=== PATIENT | male | born 1990 | race American Indian/Alaskan Native ===

== ENCOUNTER 2016-12-03 06:45 | Inpatient (IN) | payer OTHER ==
[2016-12-03 07:20] LABS: Basophils % (Auto) 0.9 % (0.0-1.8); Eosinophils % (Auto) 3.9 % (0.0-4.3); Hematocrit 43.8 % (35.5-45.6); Hemoglobin 14.7 gm/dl (11.8-15.2); Mean Corpuscular HGB Conc 34 % (32-34); Mean Corpuscular Hemoglobin 30 pg (28-32); Mean Corpuscular Volume 89 fl (84-94); Platelet Count 228 K/mm3 (140-440); Red Blood Count 4.91 M/mm3 (3.65-5.03); Red Cell Distribution Width 12.3 % (13.2-15.2); White Blood Count 10.3 K/mm3 (4.5-11.0)
[2016-12-03] MEDS ORDERED: TYLENOL PO ONE (07:40)
--- NOTE | 2016-12-03 07:40 | Emergency Department Report ---
HPI - General Chief Complaint: Altered Mental Status Time Seen by Provider: 12/03/16 07:15 - HPI HPI: This is a 25-year-old -[place] male presents to the emergency department by EMS after he was found unresponsive and vomiting. The patient is currently awake and alert and says that he was driving his girlfriend to work around 5 AM, and when he was returning back home just prior to presentation he began feeling hot and sweaty and nauseated and pulled over at a gas station. The next thing he remembers he is in route to the emergency department with EMS. Patient was given 2 mg of Narcan which did appear to help. Patient says he began having seizures last summer and was diagnosed as epileptic on September 13. He takes Depakote for his seizures. Recently the dosage was decreased since he had not been having any seizures recently. Unknown if this was a seizure as there was no eyewitness. Currently patient complains only of some headache. He admits to smoking marijuana last night but otherwise he denies any other illicit drug use or excessive alcohol use. He denies any other past medical history. His primary care doctor is a Dr. Shah. No recent travel or sick contacts at home. ED Past Medical Hx - Past Medical History Hx Seizures: Yes - Surgical History Past Surgical History?: No - Social History Smoking Status: Never Smoker Substance Use Type: Alcohol, Marijuana - Medications Home Medications: Home Medications Medication Instructions Recorded Confirmed Last Taken Type Divalproex [DepaKOTE ] 250 mg PO BID 12/03/16 12/03/16 Unknown History ED Review of Systems ROS: Stated complaint: AMS Other details as noted in HPI Comment: All other systems reviewed and negative Constitutional: denies: chills, fever Eyes: denies: eye pain, eye discharge, vision change ENT: denies: ear pain, throat pain Respiratory: denies: cough, shortness of breath, wheezing Cardiovascular: denies: chest pain, palpitations Gastrointestinal: denies: abdominal pain, nausea, diarrhea Genitourinary: denies: urgency, dysuria Musculoskeletal: denies: back pain, joint swelling, arthralgia Skin: denies: rash, lesions Neurological: headache. denies: numbness, paresthesias Physical Exam - Physical Exam Vital Signs: Vital Signs 12/03/16 06:50 Temperature 97.6 F Pulse Rate 96 H Respiratory 18 Rate Blood Pressure 147/85 O2 Sat by Pulse 98 Oximetry Physical Exam: GENERAL: The patient is well-developed well-nourished. HEENT: Normocephalic. Atraumatic. Extraocular motions are intact. Patient has moist mucous membranes. Pupils equal reactive to light bilaterally. NECK: Supple. Trachea is midline. CHEST/LUNGS: Clear to auscultation. There is no respiratory distress noted. HEART/CARDIOVASCULAR: Regular. There is no tachycardia. There is no gallop rub or murmur. ABDOMEN: Abdomen is soft, nontender. Patient has normal bowel sounds. There is no abdominal distention. SKIN: There is no rash. There is no edema. There is no diaphoresis. NEURO: The patient is awake, alert, and oriented. The patient is cooperative. The patient has no focal neurologic deficits. The patient has normal speech. Cranial nerves II through XII grossly intact. MUSCULOSKELETAL: There is no tenderness or deformity. There is no limitation range of motion. There is no evidence of acute injury. Muscle strength 5 out of 5 upper and lower extremity bilaterally. ED Course Vital Signs 12/03/16 06:50 Temperature 97.6 F Pulse Rate 96 H Respiratory 18 Rate Blood Pressure 147/85 O2 Sat by Pulse 98 Oximetry - Reevaluation(s) Reevaluation #1: The patient has been reevaluated multiple times during his ED course. The patient had a witnessed seizure about 11:30 AM and since that time the patient has been closely monitored and receiving multiple medications. The patient has received a total of 6 mg of Ativan and received a dose of ketamine 15 mg which is just about at 0.2 mg/kg. The patient is just now started to relax from postictal confusion and combativeness. Since the patient has had a second seizure and such a prolonged postictal period, the patient will have a CT scan of the head done to rule out any acute intercranial process. If there is no bleed, edema or reason for transfer, the patient will be admitted to the hospital for IV fluid resuscitation and further evaluation. 12/03/16 15:04 ED Medical Decision Making - Lab Data Result diagrams: 12/03/16 07:04 12/03/16 07:04 - EKG Data -: EKG Interpreted by Me EKG shows normal: sinus rhythm (with sinus arrhythmia), axis, intervals, QRS complexes, ST-T waves Rate: normal - EKG Data When compared to previous EKG there are: previous EKG unavailable Interpretation: normal EKG - Radiology Data Radiology results: report reviewed, image reviewed interpreted by me: X-ray of the right shoulder does not show any fracture or dislocation. CT of the head does not show any acute process including no hemorrhage, mass, shift, diffuse edema or skull fracture. - Medical Decision Making 25-year-old male presents to the emergency department after there was a unresponsive episode while driving home earlier this morning. Patient seemed to respond to Narcan however he denies any opiate use and his urine drug screen eventually was negative. Patient has a history of epilepsy and there was some concern that could've been an atypical seizure and that he broke his postictal period just as he got Narcan coincidentally. Patient was seen in the emergency department and had labs and physical exam. At this time he was awake and alert , and oriented. Patient's labs did not show any signs of infection, electrolyte abnormalities, renal insufficiency, glucose abnormalities. Normal thyroid function. Decided to monitor the patient for a few hours, and at 11:30 AM the patient had another seizure witnessed by ED staff. He was given 2 mg of Ativan and his seizure broke. However the patient began a postictal period that lasted about 3 hours without presented with the patient becoming very combative, confused. He required both chemical and physical restraints. He got another 4 mg of Ativan in total and a low dose amount of ketamine. Eventually the patient did become less agitated and now, upon one of his reevaluation, the patient is once again awake, alert and oriented. However due to his altered mental status and prolonged postictal state, the patient will be admitted to hospital for further evaluation and treatment. CT of the head was negative for any bleed, shift, mass or any acute process. X-ray of the right shoulder was done because the patient was fighting against the restraints and already has a history of some shoulder pain. X-ray does not show any fracture or dislocation. Patient had a urinalysis that did not show any urinary tract infection and UDS was positive only for marijuana, which the patient was up and about. The patient is on Depakote and has been on a lower dose as of recently but it may need to be increased. His mother notified me that the patient has a bad reaction with Keppra with a complete change in his mental status. Patient be admitted to hospital for further evaluation and has been accepted for admission by the hospitalist, Dr. Alicea. - Differential Diagnosis seizure, substance abuse, brain bleed, CVA Critical Care Time: No Critical care attestation.: If time is entered above; I have spent that time in minutes in the direct care of this critically ill patient, excluding procedure time. ED Disposition Clinical Impression: Seizures Altered mental status Qualifiers: Altered mental status type: unspecified Qualified Code(s): R41.82 - Altered mental status, unspecified Hypertension Qualifiers: Hypertension type: essential hypertension Qualified Code(s): I10 - Essential ( primary) hypertension Disposition: OP ADMITTED IP TO THIS HOSP Is pt being admited?: Yes Condition: Stable Instructions: Hypertension (ED) Referrals: PRIMARY CARE, [Primary Care Provider] - 3-5 Days Time of Disposition: 15:42
[2016-12-03 08:03] LABS: Anion Gap 33 mmol/L; BUN/Creatinine Ratio 9.16; Blood Urea Nitrogen 11 mg/dL (9-20); Calcium 9.2 mg/dL (8.4-10.2); Carbon Dioxide 12 mmol/L (22-30); Chloride 94.2 mmol/L (98-107); Glucose 203 mg/dL (75-100); Potassium 4.1 mmol/L (3.6-5.0); Sodium 135 mmol/L (137-145)
--- NOTE | 2016-12-03 08:38 | Admit Criteria Form ---
Admission Criteria Documentation: SEIZURE Clinical Indications for Admission to Inpatient Care (Place 'X' for any and all applicable criteria): Admission is indicated for seizure and ANY ONE of the following(1)(2)(3)(4)(5): [X]I. Inpatient admission required rather than observation care (Also use Seizure: Observation Care Criteria as appropriate) because of ANY ONE of the following: [X]a) Altered mental status that is severe or persistent [ ]b) New focal neurologic deficit that is severe or persistent [ ]c) Metabolic disorder (eg, hypoglycemia, hyponatremia) that is severe or persistent [X]d) Recurrent seizure [ ]e) Outpatient antiseizure regimen cannot be established (eg , patient cannot tolerate medication, initiation requires inpatient care) [ ]f) Need for ongoing intravenous infusion of antiseizure medication [ ]g) Cardiac arrhythmias of immediate concern [ ]h) Cerebral bleeding, hydrocephalus, or vasospasm monitoring (14) [ ]i) Increased intracranial pressure or cerebral edema monitoring (15) [ ]j) Other treatment or monitoring requiring inpatient admission [ ]II. Status epilepticus [A] or repetitive seizures not controlled with emergent treatment (6)(8) [ ]III. Brain disorder (eg, tumor, edema, and hydrocephalus) that requiring monitoring or intervention available only at inpatient level of care. [ ]IV. Brain insult (eg, severe trauma, stroke, drug toxicity, or withdrawal) that requires monitoring or intervention available only at inpatient level of care (10)(11) Extended stay beyond goal length of stay may be needed for (22) [ ]a) Complications of status epilepticus [ ]b) Refractory status epilepticus [ ]c) Etiology-specific therapy for conditions such as SUBMARINE ELEMENT [employer]ORDINATOR infection, head injury,eclampsia, severe metabolic abnormalities, and brain tumor [ ]d) Residual neurologic damage, [ ]e) Initiation of significant change to anticonvulsant treatment [ ]f) Older patients (65 years or older) [ ]g) Patient requiring intubation (eg, to protect airway) The original [facility] content created by [facility] [employer] has been revised. The portions of the content which have been revised are identified through the use of italic text or in bold, and [facility] [employer] [employer] has neither reviewed nor approved the modified material. All other unmodified content is copyright [facility] [employer]. Please see references footnoted in the original [facility] edition 2016 Admission Criteria Met: Yes
[2016-12-03] MEDS ORDERED: NACL 0.9% 1000 ML 1,000 ML IV ONE ×2 (10:39→14:55)
[2016-12-03] MEDS ORDERED: ATIVAN ONE (11:44)
[2016-12-03] MEDS ORDERED: ATIVAN IV ONE ×3 (11:50→12:23)
[2016-12-03] MEDS ORDERED: KETALAR IV ONE (13:03)
[2016-12-03] MEDS ORDERED: KETALAR ONE (13:20)
[2016-12-03 13:42] VITALS: BP 156/91
[2016-12-03 14:43] LABS: Urine Drugs of Abuse Note Disclamer
[2016-12-03 14:53] LABS: Bilirubin,Urine NEG (Negative); Blood,Urine MOD (Negative); Ketones,Urine TR mg/dL (Negative); Leukocyte Esterase,Urine NEG (Negative); Mucus,Urine FEW /HPF; Nitrite,Urine NEG (Negative); Protein,Urine <15 mg/dL mg/dL (Negative); Urobilinogen,Urine < 2.0 mg/dL (<2.0); WBC,Urine < 1.0 /HPF (0.0-6.0)
--- NOTE | 2016-12-03 15:52 | Cat Scan Report ---
CRANIAL CT SCAN: Serial contiguous axial images were obtained through the cranium. Intravenous contrast material was not administered. The ventricles are normal in size and appearance. There is no mass effect or midline shift. No areas of abnormally increased or decreased attenuation are seen. No mass lesion is seen. The mastoid air cells and visualized portions of the sinuses are normal. IMPRESSION: Cranial CT scan within normal limits.
--- NOTE | 2016-12-03 16:13 | XRay Report ---
RIGHT SHOULDER: Routine views demonstrate normal bony and soft tissue structures with normal joint alignment of the shoulder. IMPRESSION: Normal study.
[2016-12-03] MEDS ORDERED: ATIVAN IV PRN (20:46)
--- NOTE | 2016-12-03 20:47 | History and Physical Report ---
History of Present Illness Date of examination: 12/03/16 Date of admission: 12/03/16 15:43 Chief complaint: Seizures and AMS since morning History of present illness: This is a 25-year-old -[place] male presents to the emergency department by EMS after he was found unresponsive and vomiting. The patient is currently awake and alert and says that he was driving his girlfriend to work around 5 AM, and when he was returning back home just prior to presentation he began feeling hot and sweaty and nauseated and pulled over at a gas station. The next thing he remembers he is in route to the emergency department with EMS. Patient was given 2 mg of Narcan which did appear to help. Patient says he began having seizures last summer and was diagnosed as epileptic on September 13. He takes Depakote for his seizures. Recently the dosage was decreased since he had not been having any seizures recently. Unknown if this was a seizure as there was no eyewitness. Currently patient complains only of some headache. He admits to smoking marijuana last night but otherwise he denies any other illicit drug use or excessive alcohol use. He denies any other past medical history. His primary care doctor is a Dr. Shah. No recent travel or sick contacts at home. Past History Past Medical History: seizures Past Surgical History: No surgical history Social history: single, smoking (Marijuana), other (Etoh use) Medications and Allergies Allergies Allergy/AdvReac Type Severity Reaction Status Date / Time Penicillins Allergy Hives Verified 12/03/16 06:54 levetiracetam [From [facility]] AdvReac Unknown Verified 12/03/16 15:07 Home Medications Medication Instructions Recorded Confirmed Last Taken Type Divalproex [DepaKOTE ] 250 mg PO BID 12/03/16 12/03/16 Unknown History Review of Systems All systems: negative Neurological: seizures, change in mentation (Mentation was normal around 6 pm), confusion Exam - Constitutional Vitals: Temp Pulse Resp BP Pulse Ox 97.6 F 114 H 39 H 156/91 98 12/03/16 06:50 12/03/16 15:10 12/03/16 13:00 12/03/16 18:40 12/03/16 13:31 General appearance: Present: no acute distress, well-nourished - EENT Eyes: Present: PERRL ENT: hearing intact, clear oral mucosa - Neck Neck: Present: supple, normal ROM - Respiratory Respiratory effort: normal Respiratory: bilateral: CTA - Cardiovascular Heart Sounds: Present: S1 & S2. Absent: rub, click - Extremities Extremities: pulses symmetrical, No edema Peripheral Pulses: within normal limits - Abdominal General gastrointestinal: Present: soft, non-tender, non-distended, normal bowel sounds Male genitourinary: Present: normal - Integumentary Integumentary: Present: clear, warm, dry - Musculoskeletal Musculoskeletal: gait normal, strength equal bilaterally - Psychiatric Psychiatric: appropriate mood/affect, intact judgment & insight - Neurologic Neurologic: CNII-XII intact, moves all extremities Results - Labs CBC & Chem 7: 12/03/16 07:04 12/03/16 07:04 Labs: Abnormal lab results 12/03/16 Range/Units 15:52 Total Creatine Kinase 2275 H (55-170) units/L Short CBC 12/03/16 Range/Units 07:04 WBC 10.3 (4.5-11.0) K/mm3 Hgb 14.7 (11.8-15.2) gm/dl Hct 43.8 (35.5-45.6) % Plt Count 228 (140-440) K/mm3 [facility] 12/03/16 07:04 Sodium 135 L Potassium 4.1 Chloride 94.2 L Carbon Dioxide 12 L BUN 11 Creatinine 1.2 Glucose 203 H Calcium 9.2 Cardiac Enzymes 12/03/16 12/03/16 Range/Units 09:30 15:52 Total Creatine Kinase 339 H 2275 H (55-170) units/L Urine 12/03/16 Range/Units 14:39 Urine Color Straw (Yellow) Urine pH 5.0 (5.0-7.0) Ur Specific Start 1.013 (1.003-1.030) Urine Protein <15 mg/dl (Negative) mg/dL Urine Glucose (UA) 150 (Negative) mg/dL [facility] 12/03/16 07:04 Sodium 135 L Potassium 4.1 Chloride 94.2 L Carbon Dioxide 12 L BUN 11 Creatinine 1.2 Glucose 203 H Calcium 9.2 Cardiac Enzymes 12/03/16 12/03/16 Range/Units 09:30 15:52 Total Creatine Kinase 339 H 2275 H (55-170) units/L Urine 02/08/17 Range/Units 14:39 Urine Color Straw (Yellow) Urine pH 5.0 (5.0-7.0) Ur Specific Start 1.013 (1.003-1.030) Urine Protein <15 mg/dl (Negative) mg/dL Urine Glucose (UA) 150 (Negative) mg/dL Assessment and Plan - Patient Problems (1) Altered mental status Status: Acute Qualifiers: Altered mental status type: disorientation Coma depth: C Coma timing: C Qualified Code(s): R41.0 - Disorientation, unspecified Plan to address problem: Sec to seizures-resolving (2) Seizures Status: Acute Plan to address problem: Increased Depakote to 500 mg q12 from 250 mg q12 (3) Rhabdomyolysis Status: Acute Qualifiers: Rhabdomyolysis type: non-traumatic Encounter type: E Qualified Code(s): M62.82 - Rhabdomyolysis Plan to address problem: Sec to [id number] fluids for now (4) DVT prophylaxis Status: Acute Plan to address problem: Lovenox 40 mg sq qd
[2016-12-03] MEDS ORDERED: NACL 0.9% 1000 ML 1,000 ML IV SCH (21:00)
== END 2016-12-03 22:29 | disposition left against medical advice (07) | DRG 101 ==
LOC: ED 06:45 → 3A 15:43
PROVIDERS: ADMIT Internal Medicine; ATTEND Internal Medicine
DX: R56.9 Unspecified convulsions (principal); M62.82 Rhabdomyolysis; I10 Essential (primary) hypertension; F14.90 Cocaine use, unspecified, uncomplicated; Z88.0 Allergy status to penicillin; Z88.8 Allergy status to other drugs, medicaments and biological substances; Z79.899 Other long term (current) drug therapy
CPT/HCPCS: 36415; 70450; 80048; 80164; 80307; 80320; 81001; 82550; 84443; 85025; 93005; 93010; 96374; 96375; G0480; J2060; J7030

== ENCOUNTER 2021-02-13 16:30 | Emergency (ER) | payer MEDICARE, OTHER ==
--- NOTE | 2021-02-13 16:53 | Emergency Department Report ---
ED Seizure HPI - General Chief Complaint: Seizure Stated Complaint: SEIZURE Time Seen by Provider: 02/13/21 16:33 Source: EMS Mode of arrival: Stretcher Limitations: Altered Mental Status - History of Present Illness Initial Comments: Patient is a 30 years old male with history of seizure. Patient brought to the emergency room via EMS from home after patient had 1 episode of generalized tonic-clonic seizure. According to EMS patient was in his care and car going to the emergency room and parent stated that patient is not compliant with his medication. Upon arrival to the ER patient is post ictal and confused. Patient received valproic acid 500 milligrams IV. And before the patient received 2 mg of Ativan. MD Complaint: seizure -: Sudden Description of Episode: loss of consciousness, tonic-clonic movement, post-event confusion Witnessed:: Yes Trauma: No Seizure History: known seizure disorder Place: home Associated Symptoms: denies other symptoms Treatments Prior to Arrival: benzodiazepines - Related Data Home Medications Medication Instructions Recorded Confirmed Last Taken Divalproex [Yvette VELAZQUEZ] 250 mg PO BID 12/03/16 12/03/16 Unknown Previous Rx's Medication Instructions Recorded Last Taken Type Divalproex Dr [Yvette VELAZQUEZ] 250 mg PO BID #60 tablet 02/13/21 Unknown Rx Allergies Allergy/AdvReac Type Severity Reaction Status Date / Time Penicillins Allergy Hives Verified 12/03/16 06:54 levetiracetam [From [facility]] AdvReac Unknown Verified 12/03/16 15:07 ED Review of Systems ROS: Stated complaint: SEIZURE Other details as noted in HPI Comment: All other systems reviewed and negative Constitutional: denies: chills, fever Respiratory: denies: cough, shortness of breath Cardiovascular: denies: chest pain, palpitations Gastrointestinal: denies: abdominal pain, nausea, vomiting Musculoskeletal: denies: back pain Neurological: denies: headache ED Past Medical Hx - Past Medical History Previous Medical History?: Yes Hx Hypertension: No Hx CVA: No Hx Diabetes: No Hx Renal Disease: No Hx Arthritis: No Hx Seizures: Yes Hx Asthma: No - Surgical History Hx Pacemaker: No - Social History Smoking Status: Unknown if ever smoked - Medications Home Medications: Home Medications Medication Instructions Recorded Confirmed Last Taken Type Divalproex [Yvette VELAZQUEZ] 250 mg PO BID 12/03/16 12/03/[address] [DepaKOTE DR] 250 mg PO BID #60 tablet 02/13/21 Unknown Rx ED Physical Exam - General Limitations: Altered Mental Status General appearance: in no apparent distress, postictal - Head Head exam: Present: atraumatic, normocephalic, normal inspection - Eye Eye exam: Present: normal appearance, PERRL - ENT ENT exam: Present: normal exam, normal orophraynx, mucous membranes moist - Neck Neck exam: Present: normal inspection, full ROM. Absent: tenderness, meningismus - Respiratory Respiratory exam: Present: normal lung sounds bilaterally - Cardiovascular Cardiovascular Exam: Present: tachycardia - GI/Abdominal GI/Abdominal exam: Present: soft, normal bowel sounds. Absent: distended, tenderness, guarding, rebound, rigid, organomegaly, mass, bruit, pulsatile mass, hernia - Extremities Exam Extremities exam: Present: normal inspection, full ROM, normal capillary refill. Absent: tenderness - Back Exam Back exam: Present: normal inspection, full ROM. Absent: CVA tenderness (R), CVA tenderness (L) - Neurological Exam Neurological exam: Present: alert, oriented X3, CN II-XII intact - Psychiatric Psychiatric exam: Present: normal mood - Skin Skin exam: Present: warm, intact, normal color ED Course Vital Signs 02/13/21 16:40 Temperature 97.8 F Pulse Rate 111 H Respiratory 16 Rate Blood Pressure 152/112 [Left] O2 Sat by Pulse 98 Oximetry ED Medical Decision Making - Lab Data Result diagrams: 02/13/21 16:57 02/13/21 16:57 - Medical Decision Making Patient is a 30 years old male with history of seizure. Patient brought to the emergency room via EMS from home after patient had 1 episode of generalized tonic-clonic seizure. According to EMS patient was in his care and car going to the emergency room and parent stated that patient is not compliant with his medication. Upon arrival to the ER patient is post ictal and confused. Patient received valproic acid 500 milligrams IV. And before the patient received 2 mg of Ativan Patient remained stable in the ER. Patient is alert, oriented x3 no acute distress. Labs reviewed and showed leukocytosis and is most likely stress reaction. Patient does not have any fever or chills. Patient given prescription for Depakote and advised to follow-up with his neurologist in the next 2 to 3 days and to return to the ER if he develop any new symptoms. Critical care attestation.: If time is entered above; I have spent that time in minutes in the direct care of this critically ill patient, excluding procedure time. ED Disposition Clinical Impression: Seizures Disposition: DC-01 TO HOME OR SELFCARE Is pt being admited?: No Condition: Stable Instructions: Seizure, Adult, [id number] Prescriptions: Divalproex [Yvetet VELAZQUEZ] 250 mg PO BID #60 tablet Referrals: PRIMARY CARE, [Referring] - 3-5 Days
[2021-02-13 17:09] LABS: Hematocrit 46.4 % (35.5-45.6); Hemoglobin 15.4 gm/dl (11.8-15.2); Mean Corpuscular HGB Conc 33 % (32-34); Mean Corpuscular Volume 90 fl (84-94); Platelet Count 368 K/mm3 (140-440); Red Blood Count 5.14 M/mm3 (3.65-5.03)
[2021-02-13] MEDS ORDERED: LORazepam 2 MG/ML VIAL IV ONE (17:21)
[2021-02-13] MEDS ORDERED: LORazepam 2 MG/ML VIAL ONE (17:21)
[2021-02-13] MEDS ORDERED: VALPROATE SODIUM 500 MG in SODIUM CHLORIDE 0.9% 100 ML IV ONE (17:30)
[2021-02-13 17:48] LABS: BUN/Creatinine Ratio 4; Blood Urea Nitrogen 6 mg/dL (9-20); Calcium 9.6 mg/dL (8.4-10.2); Hemolysis Index 6
[2021-02-13 17:52] LABS: Alanine Aminotransferase 23 units/L (7-56); Albumin 5.2 g/dL (3.9-5)
[2021-02-13 17:54] LABS: Bilirubin,Direct < 0.2 mg/dL (0-0.2)
[2021-02-13 20:09] VITALS: BP 155/108
[2021-02-13 21:02] LABS: Band Neutrophils # (Manual) 0.3 K/mm3; Total Cells Counted 100
[2021-02-13 21:03] LABS: Platelet Estimate Consistent w Auto
== END 2021-02-13 20:09 | disposition home or self-care (01) ==
LOC: ED 16:30
DX: G40.909 Epilepsy, unspecified, not intractable, without status epilepticus (principal); Z79.899 Other long term (current) drug therapy; Z88.0 Allergy status to penicillin; Z88.8 Allergy status to other drugs, medicaments and biological substances
CPT/HCPCS: 36415; 80048; 80076; 85007; 85025; 96365; 96375; 99284; J2060